=== PATIENT | male | born 1975 | race Caucasian/White ===

== ENCOUNTER 2018-06-04 09:48 | Outpatient (CLI) | payer OTHER ==
--- NOTE | 2018-06-04 12:13 | MRI ---
MRI CERVICAL SPINE WITHOUT IV CONTRAST: Date: 06/04/18 HISTORY: Right shoulder, arm, and hand numbness and tingling since 2017. COMPARISON: None available. FINDINGS: Visualized base of the brain and cervicomedullary junction demonstrate a normal MRI appearance. Normal signal intensity is demonstrated in the bone marrow. C2-3 Level: There is no disc bulge or disc herniation. Central spinal canal and neural foramina are patent. C3-4 Level: There is uncinate process hypertrophy bilaterally, which results in mild to moderate lef t-sided neural foraminal narrowing. Left neural foramen is patent. There is mild effacement of the ve ntral subarachnoid space. C4-5 Level: There is no disc bulge or disc herniation. Central spinal canal and neural foramina are patent. C5-6 Level: There is mild uncinate process hypertrophy on the right resulting in mild right-sided ne ural foraminal narrowing. There is no disc bulge or disc herniation. Central spinal canal and left ne ural foramina are patent. C6-7 Level: There is loss of intervertebral disc height. There is a broad based disc osteophyte comp prasanth, greater on the left, with uncinate process hypertrophy. There is narrowing of the ventral subara chnoid space. There is prominent motion artifact at this level on the axial sequences, which does deg rade image quality and limits evaluation. However, there is mild to moderate right and moderate to se juliette left-sided neural foraminal narrowing. There is effacement of the ventral subarachnoid space. C7-T1 Level: There is no disc bulge or disc herniation. Central spinal canal and neural foramina are patent. Paravertebral soft tissues demonstrate normal signal intensity. IMPRESSION: Degenerative changes in the cervical spine, greatest at the C6-7 level. POS: [facility]
== END 2018-06-04 09:49 | disposition home or self-care (01) ==
LOC: SCSMRI 09:48
PROVIDERS: ATTEND Orthopaedic Surgery
DX: M47.22 Other spondylosis with radiculopathy, cervical region (principal)
CPT/HCPCS: 72141